=== PATIENT | male | born 1995 | race Caucasian/White ===

== ENCOUNTER 2020-03-07 16:50 | Emergency (ER) | payer SELFPAY ==
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
--- NOTE | 2020-03-07 18:30 | EDPHYS ---
Physician Documentation [facility] Name: Jc Calderon Age: 24 yrs Sex: Male : 1995 Arrival Date: 03/07/2020 Time: 16:51 Bed 19 Private MD: ED Physician Eloy Infante HPI: 03/07 18:25 This 24 yrs old Male presents to ER via Ambulatory with complaints of Near gregory Syncope, Blurred Vision. 18:25 The patient has experienced near-syncope, almost passed out. Onset: The gregory symptoms/episode began/occurred just prior to arrival. Duration: This was a single episode, that lasted 2 minute(s). Context: the episode(s) was witnessed, by family, . Associated injury: The patient did not suffer any apparent associated injury. Associated signs and symptoms: Pertinent positives: lightheadedness, weakness. Current symptoms: Currently, the patient is not experiencing any symptoms, the patient feels back to baseline. The patient has not experienced similar symptoms in the past. Historical: - Allergies: 16:58 No Known Allergies; ss - Home Meds: 16:58 None [Active]; ss - PMHx: 16:58 None; ss - PSHx: 16:58 None; ss - Immunization history:: Adult Immunizations unknown. - Social history:: Smoking status: Patient reports the use of cigarette tobacco products, denies chronic smoking, but will smoke occasionally, Patient/guardian denies using street drugs, Patient uses alcohol, "every other day" . - Family history:: not pertinent. ROS: 18:25 Constitutional: Negative for fever, chills, and weight loss, Eyes: Negative for injury, gregory pain, redness, and discharge, ENT: Negative for injury, pain, and discharge, Neck: Negative for injury, pain, and swelling, Cardiovascular: Negative for chest pain, palpitations, and edema, Respiratory: Negative for shortness of breath, cough, wheezing, and pleuritic chest pain, Abdomen/GI: Negative for abdominal pain, nausea, vomiting, diarrhea, and constipation, Back: Negative for injury and pain, : Negative for injury, bleeding, discharge, and swelling, MS/Extremity: Negative for injury and deformity, Skin: Negative for injury, rash, and discoloration, Psych: Negative for depression, anxiety, suicide ideation, homicidal ideation, and hallucinations, Allergy/Immunology: Negative for hives, rash, and allergies, Endocrine: Negative for neck swelling, polydipsia, polyuria, polyphagia, and marked weight changes, Hematologic/Lymphatic: Negative for swollen nodes, abnormal bleeding, and unusual bruising. 18:25 Neuro: Positive for near syncope, hyperventilation. Exam: 18:25 Constitutional: This is a well developed, well nourished patient who is awake, alert, gregory and in no acute distress. Head/Face: Normocephalic, atraumatic. Eyes: Pupils equal round and reactive to light, extra-ocular motions intact. Lids and lashes normal. Conjunctiva and sclera are non-icteric and not injected. Cornea within normal limits. Periorbital areas with no swelling, redness, or edema. ENT: Nares patent. No nasal discharge, no septal abnormalities noted. Tympanic membranes are normal and external auditory canals are clear. Oropharynx with no redness, swelling, or masses, exudates, or evidence of obstruction, uvula midline. Mucous membranes moist. Neck: Trachea midline, no thyromegaly or masses palpated, and no cervical lymphadenopathy. Supple, full range of motion without nuchal rigidity, or vertebral point tenderness. No Meningismus. Chest/axilla: Normal chest wall appearance and motion. Nontender with no deformity. No lesions are appreciated. Cardiovascular: Regular rate and rhythm with a normal S1 and S2. No gallops, murmurs, or rubs. Normal PMI, no JVD. No pulse deficits. Respiratory: Lungs have equal breath sounds bilaterally, clear to auscultation and percussion. No rales, rhonchi or wheezes noted. No increased work of breathing, no retractions or nasal flaring. Abdomen/GI: Soft, non-tender, with normal bowel sounds. No distension or tympany. No guarding or rebound. No evidence of tenderness throughout. Back: No spinal tenderness. No costovertebral tenderness. Full range of motion. Male : Normal genitalia with no discharge or lesions. Skin: Warm, dry with normal turgor. Normal color with no rashes, no lesions, and no evidence of cellulitis. MS/ Extremity: Pulses equal, no cyanosis. Neurovascular intact. Full, normal range of motion. Neuro: Awake and alert, GCS 15, oriented to person, place, time, and situation. Cranial nerves II-XII grossly intact. Motor strength 5/5 in all extremities. Sensory grossly intact. Cerebellar exam normal. Normal gait. Psych: Awake, alert, with orientation to person, place and time. Behavior, mood, and affect are within normal limits. 18:25 Cardiovascular: Exam negative for Heart sounds: normal, normal S1and S2, no S3 or S4, murmur, not appreciated, rub, not appreciated, gallop, not appreciated, S1, normal, S2, normal, Edema: is not appreciated, JVD: is not appreciated. 18:30 Cardiovascular: Rate: normal, Rhythm: regular, Pulses: Pulses are 4+ in bilateral gregory radial, brachial, femoral, popliteal, posterior tibial and and dorsalis pedis arteries.. 18:30 Musculoskeletal/extremity: DVT Exam: No signs of deep vein thrombosis. no pain, no swelling, no tenderness, negative Homans' sign noted on exam, no appreciated bluish discoloration, no erythema, no increased warmth. 18:44 ECG was reviewed by the Attending Physician. [facility] Vital Signs: 16:55 BP 164 / 91; Pulse 107; Resp 20; Temp 97.8(TE); Pulse Ox 99% on R/A; Weight 62.14 kg; ss Height 6 ft. 0 in. (182.88 cm); Pain 0/10; 18:40 BP 155 / 74; Pulse 84; Resp 16; Pulse Ox 98% on R/A; iw 16:55 Body Mass Index 18.58 (62.14 kg, 182.88 cm) ss MDM: 17:13 Patient medically screened. [facility] 18:27 Differential Diagnosis: cardiac arrhythmia, emotional response, vasovagal episode. Data [facility] reviewed: vital signs, nurses notes. Data interpreted: panel monitor: rate is 96 beats/min, rhythm is regular, Pulse oximetry: on room air is 99 %. Test interpretation: by ED physician or midlevel provider: ECG, plain radiologic studies. Counseling: I had a detailed discussion with the patient and/or guardian regarding: the historical points, exam findings, and any diagnostic results supporting the discharge/admit diagnosis, the need for outpatient follow up, for definitive care, a family practitioner. 03/07 18:28 Order name: EKG; Complete Time: 18:29 [facility] 03/07 18:28 Order name: EKG - Nurse/Tech; Complete Time: 18:47 gregory EC:44 Rate is 72 beats/min. Rhythm is regular. QRS [place] is Normal. MI interval is normal. QRS gregory interval is normal. QT interval is normal. No Q waves. T waves are Normal. No ST changes noted. Clinical impression: Normal ECG and No evidence of ischemia. Interpreted by me. Reviewed by me. Administered Medications: No medications were administered Disposition: 03/07/20 18:29 Discharged to Home. Impression: Hyperventilation, Weakness. - Condition is Stable. - Discharge Instructions: Hyperventilation, Weakness, Fatigue, Weakness, [id number]. - Medication Reconciliation Form, Thank You Letter, Antibiotic Education, Prescription Opioid Use form. - Follow up: Private Physician; When: 2 - 3 days; Reason: Recheck today's complaints, Continuance of care, Re-evaluation by your physician. Follow up: Nino Benz DO; When: 2 - 3 days; Reason: Recheck today's complaints, Re-evaluation by your physician. - Problem is new. - Symptoms have improved. Signatures: Eloy Infante MD MD cha Smirch, Shelby, RN RN ss Russel Chaves RN RN ll1 Corrections: (The following items were deleted from the chart) 18:44 18:29 03/07/2020 18:29 Discharged to Home. Impression: Hyperventilation; Weakness. ll1 Condition is Stable. Forms are Medication Reconciliation Form, Thank You Letter, Antibiotic Education, Prescription Opioid Use. Follow up: Private Physician; When: 2 - 3 days; Reason: Recheck today's complaints, Continuance of care, Re-evaluation by your physician. Follow up: Nino Benz; When: 2 - 3 days; Reason: Recheck today's complaints, Re-evaluation by your physician. Problem is new. Symptoms have improved. gregory
--- NOTE | 2020-03-08 20:02 | EKG ---
Test Date: 2020-03-07 Test Time: 18:38:22 [employer]: [place] MEASUREMENT RESULTS: Intervals: Rate: 72 DC: 120 QRSD: 92 QT: 366 QTc: 400 [place]: P: 49 DC: 120 QRS: 86 T: 60 INTERPRETIVE STATEMENTS: Normal sinus rhythm with sinus arrhythmia Normal ECG No previous ECG available for comparison Electronically Signed On 03-08-20 20:01:11 [employer] by Claudy Seay
[2020-03-12 20:11] VITALS: BP 164/91; TEMP 97.8; O2SAT 99
== END 2020-03-07 18:44 | disposition home or self-care (01) ==
LOC: ER 16:50
DX: R06.4 Hyperventilation (principal); R53.1 Weakness; Z72.0 Tobacco use
CPT/HCPCS: 93005; 99284